=== PATIENT | male | born 1995 | race Caucasian/White ===

== ENCOUNTER 2022-10-20 23:42 | Emergency (ER) | payer OTHER, SELFPAY ==
--- NOTE | ~2022-10-20 | CT_ITS ---
EXAMINATION: CT brain wo con DATE: 10/21/2022 00:17 INDICATION: Headache. Left ear injury. TECHNIQUE: Computed tomography (CT) of the head was performed without intravenous contrast. The mA wa s adjusted according to patient size. Iterative reconstruction technique was employed. The dose-lengt h product was 605.33 mGy-cm. COMPARISON: None FINDINGS: There is no intracranial hemorrhage, acute infarction, or abnormal intracranial mass lesion . The ventricles are normal in size. There is mild mucosal thickening in the ethmoid sinuses. The mas toid air cells are normal. IMPRESSION: 1. Normal brain. Reviewed, dictated and finalized at location A. ING INSTRUCTOR IMPRESSION: 1. Normal brain.
[2022-10-20 23:42] VITALS: BP 119/75; PULSE 84; RESP 16; TEMP 36.6; O2SAT 97
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
[2022-10-21] MEDS: LIDOCAINE HCL 1% LOCAL INJ 10 ML VIAL INFILTRATE
[2022-10-21] MEDS: ACETAMINOPHEN 500 MG TABLET 1000 MG PO (00:19)
[2022-10-21] MEDS: TETANUS,DIPHTHERIA,AC PERTUSSIS ADULT 0.5 ML (ADACEL) IM (00:22)
[2022-10-21] MEDS: KETOROLAC 30 MG/ML VIAL (*BKC) IV PUSH (00:27)
[2022-10-21] MEDS: ceFAZolin 2 GM/D5W 50 ML 2 GM/50 ML BAG IVPB (00:32)
[2022-10-21 01:56] VITALS: BP 109/73; PULSE 83; RESP 16; O2SAT 100
[2022-10-21] MEDS: NEOMYCIN/POLYMYXIN/BACITRACIN OINTMENT 15 GM TUBE 1 APPLIC TOPICAL (02:00)
== END 2022-10-21 02:06 | disposition home or self-care (01) ==
PROVIDERS: Emergency Provider Emergency Medicine
DX: S01.312A Laceration without foreign body of left ear, initial encounter (principal); R51.9 Headache, unspecified; V86.63XA Passenger of dune buggy injured in nontraffic accident, initial encounter; Z23 Encounter for immunization
CPT/HCPCS: 13151; 70450; 90471; 90715; 96365; 96375; 99284; J0690; J1885; L0150

== ENCOUNTER 2022-10-30 10:35 | Emergency (ER) | payer OTHER, SELFPAY ==
[2022-10-30 10:35] VITALS: BP 127/67; PULSE 69; RESP 16; TEMP 36.6; O2SAT 100
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
--- NOTE | 2022-10-30 11:00 | PC.NURSE ---
AWAITING REGISTRATION FOR DC
--- NOTE | 2022-10-30 11:06 | PC.NURSE ---
ERP REMOVED 10 SUTURES
== END 2022-10-30 11:05 | disposition home or self-care (01) ==
PROVIDERS: Emergency Provider Emergency Medicine
DX: Z48.02 Encounter for removal of sutures (principal)
CPT/HCPCS: 99281